=== PATIENT | male | born 1995 | race Caucasian/White ===

== ENCOUNTER 2025-02-16 00:26 | Inpatient (IN) | payer MEDICARE, MEDICAID, SELFPAY ==
[2025-02-16 00:51] VITALS: BP 158/80; PULSE 97; O2SAT 100; BMI 21.2
[2025-02-16 00:57] VITALS: BP 139/81; PULSE 87; RESP 18; TEMP 36.8; O2SAT 98
--- NOTE | 2025-02-16 01:07 | ED.PSYCH ---
HPI - Psych General Chief Complaint: Psychiatric Symptoms Stated Complaint: crisis Time Seen by Provider: 02/16/25 01:02 Source: patient Mode of arrival: ambulatory Limitations: no limitations History of Present Illness ED Provider: Burt FARR HPI Narrative: The patient is a 29-year-old male presenting to the ED for evaluation of suicidal statements made to a real estate processor after being pulled over tonight for a broken tail light. The patient reports a history of schizoaffective disorder with previous self-harm and depression, reports previous inpatient psychiatric admissions at age 14 and 16, also reports history of alcohol dependency but has been sober for the past 3 years. The patient denies any recreational drug use. The patient reports he has been experiencing passive suicidal thoughts recently as he recently lost his home and is currently living out of his vehicle. Patient reports he has also been experiencing increased stress after a recent divorce. The patient reports 2-3 days ago he did inflict superficial abrasions to his left forearm with a knife, reports a history of self-mutilation as a teenager. The patient reports tonight he was driving from [place] where he recently was living, to [place] where his girlfriend of 2 years currently resides when he was pulled over and admitted to suicidal thoughts. The patient denies homicidal ideation. The patient reports he suffers from both auditory and visual hallucinations/delusions, however states he is able to differentiate between his hallucinations and reality. Patient denies any active auditory or visual hallucinations in the ED. Related Data Home Medications ?Medication ?Instructions ?Recorded ?Confirmed venlafaxine 150 mg 150 mg PO DAILY 02/16/25 02/16/25 capsule,extended release 24 hr venlafaxine 37.5 mg 37.5 mg PO DAILY 02/16/25 02/16/25 capsule,extended release 24 hr Previous Rx's ?Medication ?Instructions ?Recorded cariprazine 1.5 mg capsule 1.5 mg PO DAILY 30 days #30 caps 02/21/25 (Vraylar) Allergies Allergy/AdvReac Type Severity Reaction Status Date / Time Iodinated Contrast Media Allergy Anaphylaxis Verified 02/16/25 00:56 risperidone Allergy Unknown Verified 02/16/25 00:56 Review of Systems Review of Systems: Yes all other systems are reviewed and are negative PMFSH Social History Social History Household Members: Family Household Members Other:: Mom, stepfather, 1 brother and grandmother Housing: House Do you presently have visiting nurse or other home services: No Patient Tobacco Use Status: Current everyday Tobacco user Tobacco use type: Cigarette Cigarette Packs Per Day: 1 Cigarettes Per Day: 20.0 e-Cigarette/Vaping Use: Never Used Second Hand Smoke Exposure: Yes (mother when she smokes) Substance Use Type: Marijuana service: No Sexual orientation: Straight/Heterosexual Physical Exam Exam: Exam: CONSTITUTIONAL: The patient appears non-toxic, well nourished and in no acute distress. Vital signs as documented. HEAD: Atraumatic, normocephalic. EYES: EOMs grossly intact, pupils equal, conjunctiva clear, no exudate. ENT: Nares patent, no discharge. Airway patent, no audible stridor, visible mucosa is pink and moist without noted lesions. NECK: Trachea is midline, no obvious masses or gross abnormalities. CHEST: Symmetric movement, normal appearance. LUNGS: LS present and CTAB, no w/r/r. Non-labored work of breathing. CARDIAC: Regular Rhythm, S1/S2 appreciated, no murmurs, rubs or gallops. ABDOMEN: Abdomen soft and non-tender x4 quadrants, no palpable masses or organomegaly. : Deferred. EXTREMITIES: Normal tone, moves all extremities spontaneously without reported pain. No obvious acute injury or deformity noted. NEURO: Alert and oriented x3, CN II-XII appear grossly intact. Cerebellar Functioning grossly intact. No obvious sensory or motor deficits. Speech clear and appropriate. PSYCH: Flattened affect, but otherwise with appropriate eye contact, fluid speech, with appropriate response to questioning. No reported homicidality. Patient does not appear to be responding to internal stimuli. SKIN: Warm, dry, color appropriate, normal turgor. No rashes noted. Vital Signs: Vital Signs: Last Vital Signs Temp 97.5 F 02/22/25 07:42 Pulse 84 02/22/25 07:42 Resp 18 02/22/25 07:42 BP 134/66 02/22/25 07:42 Pulse Ox 96 02/22/25 07:42 O2 Del Method Room Air 02/22/25 07:42 BMI result Body Mass Index 21.2 Medications Administered Discontinued Medications Generic Name Dose Route Start Last Admin Trade Name Freq PRN Reason Stop Dose Admin Cariprazine 1.5 mg 02/16/25 16:00 02/22/25 08:21 Cariprazine Hcl 1.5 Mg Capsule PO 1.5 mg DAILY ROSI Administration Melatonin 6 mg 02/20/25 21:00 02/21/25 20:10 Melatonin 3 Mg Tablet PO Not Given BEDTIME ROSI Nicotine 21 mg 02/17/25 09:00 02/22/25 08:38 Nicotine 21 Mg Patch.Td24 TRANSDERMA Not Given DAILY ROSI Ondansetron HCl 4 mg 02/16/25 17:40 02/17/25 08:27 Ondansetron Odt 4 Mg Tab.Rapdis TRANSLINGU 4 mg Q6H PRN Administration Nausea and Vomiting Venlafaxine HCl 37.5 mg 02/16/25 18:10 02/22/25 08:21 Venlafaxine Hcl Er 37.5 Mg Cap.Er.24h PO 37.5 mg DAILY ROSI Administration Venlafaxine HCl 150 mg 02/16/25 18:10 02/22/25 08:21 Venlafaxine Hcl Er 150 Mg Cap.Er.24h PO 150 mg DAILY ROSI Administration Medical Decision Making Medical Decision Making MDM Narrative: 1:23 AM 02/16/2025 (Nicolasa FARR): The patient is a 29-year-old male presenting to the ED for evaluation of suicidal statements without a formulated plan made to a real estate processor while being pulled over for a broken tail light. The patient in the ED admits to making suicidal statements and having suicidal thoughts as well as inflicting superficial abrasions to his left forearm as a form of self-mutilation 2-3 days ago. The patient is currently homeless and experiencing other stresses since recently completing a divorce. The patient in the ED is common cooperative, exam is benign. Patient will be medically cleared for crisis evaluation. 2:20 AM 02/16/2025 (Nicolasa FARR): Patient is medically cleared for crisis evaluation. Lab Data 02/16/25 01:41 02/17/25 08:35 Labs: Lab Results 02/16/25 02/16/25 02/16/25 Range/Units 01:41 05:19 07:49 WBC 10.8 (4.8-10.8) X10*3/uL RBC 4.49 L (4.60-5.80) X10*6/uL Hgb 14.4 (14.0-18.0) g/dl Hct 39.3 L (42.0-52.0) % MCV 87.5 (80.0-98.0) fL MCH 32.1 (27.0-33.0) pg MCHC 36.6 H (31.0-36.0) g/dl RDW 11.9 (11.0-16.0) % Plt Count 250 (160-400) X10*3/uL MPV 9.2 L (9.4-12.4) fL Immature Gran % (Auto) 0.3 (0.0-0.4) % Neut % (Auto) 69.2 (45-73) % Lymph % (Auto) 22.6 (20-40) % [place] % (Auto) 6.3 (2-11) % Eos % (Auto) 1.3 (0-4) % Baso % (Auto) 0.3 (0-2) % Lymph # (Auto) 2.5 (1.2-4.9) X10*3/uL [place] # (Auto) 0.7 (0.1-1.2) X10*3/uL Eos # (Auto) 0.1 (0.0-0.4) X10*3/uL Baso # (Auto) 0.0 (0.0-0.2) X10*3/uL Abs Immat Gran (auto) 0.03 (0.00-0.03) X10*3/uL Absolute Neuts (auto) 7.5 (2.0-8.3) x10*3/uL Absolute Nucleated RBC 0.000 (0.0-0.012) X10*3/uL Nucleated RBC % (auto) 0.0 (0.0-0.2) /100WBC Sodium 143 (135-145) mmol/L Potassium 3.2 L (3.3-5.1) mmol/L Chloride 106 (96-108) mmol/L Carbon Dioxide 26 (22-29) mmol/L Anion Gap 14 (12-20) BUN 11 (9-16) mg/dL Creatinine 0.98 (0.5-1.4) mg/dL Estim Creat Clear Calc 122.3 Estimated GFR > 60 Random Glucose 123 H (60-115) mg/dL Calcium 9.4 (8.4-10.2) mg/dL Total Bilirubin 0.7 (0.0-1.0) mg/dL AST 28 (5-37) U/L ALT 20 (0-40) U/L Alkaline Phosphatase 57 (39-117) U/L Total Protein 7.5 (6.5-8.0) g/dL Albumin 5.2 H (3.5-5.0) g/dL Urine Color Yellow Urine Appearance Clear Urine pH 7.5 (5.0-9.0) Ur Specific [place] <= 1.005 (1.005-1.025) Urine Protein Negative (Neg-Trace) mg/dL Urine Glucose (UA) Negative (Negative) mg/dL Urine Ketones Negative (Negative) mg/dL Urine Blood Negative (Negative) Urine Nitrite Negative (Negative) Ur Leukocyte Esterase Negative (Negative) Salicylates < 5.0 L (15-30) mg/dL Urine Opiates Screen Not Detected (Not Detect) Ur Buprenorphine Scrn Not Detected (Not Detect) ng/mL Ur Oxycodone Screen Not Detected (Not Detect) ng/mL Urine Methadone Screen Not Detected (Not Detect) ng/mL Urine Fentanyl Screen Not Detected (Not Detect) Acetaminophen < 3 (<30) mcg/mL Ur Barbiturates Screen Not Detected (Not Detect) Ur Phencyclidine Scrn Not Detected (Not Detect) Ur Amphetamines Screen Not Detected (Not Detect) U Benzodiazepines Scrn Not Detected (Not Detect) Urine Cocaine Screen Not Detected (Not Detect) U Marijuana (THC) Screen POSITIVE H (Not Detect) Ethyl Alcohol < 10 mg/dL Discharge Plan Discharge Clinical Impression: Schizoaffective disorder Patient Disposition: Admitted As Inpatient Interventions: Admission Worksheet (ED) Last Done: 02/16/25 12:58 Discharge Date/Time: 02/16/25 13:12
--- NOTE | 2025-02-16 01:12 | MHC.EDTECH ---
Pts belongings are in the shanice port on shelf 1
[2025-02-16 01:45] LABS: MANUAL DIFF FLAG NO
[2025-02-16 02:00] LABS: Hematocrit 39.3 % (42.0-52.0); Hemoglobin 14.4 g/dl (14.0-18.0); Imm Gran Abs Auto 0.03 X10*3/uL (0.00-0.03); Imm Gran Pct Auto 0.3 % (0.0-0.4); Lymphocytes Absolute Auto 2.5 X10*3/uL (1.2-4.9); Mean Corpuscular HGB Conc 36.6 g/dl (31.0-36.0); Mean Corpuscular Hemoglobin 32.1 pg (27.0-33.0); Mean Corpuscular Volume 87.5 fL (80.0-98.0); NRBC Abs Auto 0.000 X10*3/uL (0.0-0.012); NRBC Pct Auto 0.0 /100WBC (0.0-0.2); Platelet Count 250 X10*3/uL (160-400); Red Blood Count 4.49 X10*6/uL (4.60-5.80); White Blood Count 10.8 X10*3/uL (4.8-10.8)
[2025-02-16 02:04] LABS: Alanine Aminotransferase 20 U/L (0-40); Albumin Level 5.2 g/dL (3.5-5.0); Alkaline Phosphatase 57 U/L (39-117); Anion Gap 14 (12-20); Aspartate Amino Transferase 28 U/L (5-37); Blood Urea Nitrogen 11 mg/dL (9-16); Calcium 9.4 mg/dL (8.4-10.2); Carbon Dioxide 26 mmol/L (22-29); Chloride 106 mmol/L (96-108); Creatinine Clr Calc Pharmacy 122.3; Estimated Glomerular Filt Rate > 60; Potassium 3.2 mmol/L (3.3-5.1); Sodium 143 mmol/L (135-145); Total Protein 7.5 g/dL (6.5-8.0)
[2025-02-16 02:24] LABS: Acetaminophen LAB < 3 mcg/mL (<30); Salicylate < 5.0 mg/dL (15-30)
[2025-02-16 05:41] LABS: Cannabinoid Screen Urine POSITIVE (Not Detect)
[2025-02-16 06:38] VITALS: BP 114/66; PULSE 68; RESP 18; TEMP 36.5; O2SAT 99
--- NOTE | 2025-02-16 07:29 | PC.NURSE ---
patient currently sleeping, vitals stable, rr equal/non labored, 1:1 sitter at bedside, call bhat within reach, plan of care ongoing
[2025-02-16 07:57] LABS: Appearance Urine Clear; Glucose Urine UA Negative (Negative); PH 7.5 (5.0-9.0); Specific Gravity - Urine <= 1.005 (1.005-1.025)
--- NOTE | 2025-02-16 08:32 | ECG_ITS ---
Test Reason : R/O PROLONGED QT Blood Pressure : */* mmHG Vent. Rate : 67 BPM Atrial Rate : 67 BPM P-R Int : 128 ms QRS Dur : 102 ms QT Int : 404 ms P-R-T Axes : 55 73 54 degrees QTcB Int : 426 ms Normal sinus rhythm with sinus arrhythmia Normal ECG No previous ECGs available Referred By: Burt Teran Electronically Signed By: TERRENCE NARANJO
--- NOTE | 2025-02-16 09:59 | MHC.CARE ---
Pt seen by CARE team, patient on section 12 and will be inpatient level of care. ED provider notified and in agreement with disposition.
[2025-02-16 13:55] VITALS: BMI 21.9
[2025-02-16 14:00] VITALS: BP 144/85; PULSE 86; RESP 16; TEMP 36.8; O2SAT 100
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
[2025-02-16] MEDS: Venlafaxine HCl ER 37.5 MG CAP.ER.24H PO (18:20)
[2025-02-16] MEDS: Venlafaxine HCl ER 150 MG CAP.ER.24H PO (18:20)
[2025-02-16 20:00] VITALS: BP 131/70; PULSE 64; RESP 16; TEMP 36.7; O2SAT 98
[2025-02-17 07:45] VITALS: BP 139/83; PULSE 65; RESP 16; TEMP 36.6; O2SAT 99
[2025-02-17] MEDS: Venlafaxine HCl ER 150 MG CAP.ER.24H PO (08:36)
[2025-02-17] MEDS: Venlafaxine HCl ER 37.5 MG CAP.ER.24H PO (08:36)
[2025-02-17] MEDS: Nicotine 21 MG PATCH.TD24 TRANSDERMA (08:37)
[2025-02-17 09:14] LABS: Hemoglobin A1C 116.4109 umol/L; Total Hemoglobin (HGBA1C) 3900.8240 umol/L
[2025-02-17 09:32] LABS: Alanine Aminotransferase 26 U/L (0-40); Albumin Level 5.4 g/dL (3.5-5.0); Alkaline Phosphatase 59 U/L (39-117); Anion Gap 13 (12-20); Aspartate Amino Transferase 31 U/L (5-37); Blood Urea Nitrogen 14 mg/dL (9-16); Calcium 9.6 mg/dL (8.4-10.2); Carbon Dioxide 27 mmol/L (22-29); Chloride 103 mmol/L (96-108); Cholesterol 185 mg/dL (<200); Creatinine Clr Calc Pharmacy 143.5; Estimated Glomerular Filt Rate > 60; HDL Cholesterol 55 mg/dL (>40); Potassium 4.2 mmol/L (3.3-5.1); Sodium 139 mmol/L (135-145); Total Protein 8.0 g/dL (6.5-8.0); Triglycerides 112 mg/dL (<150)
--- NOTE | 2025-02-17 10:28 | P.PNPSI_ITS ---
Subjective Subjective Date of Service: 02/17/25 Reason For Visit: SI Subjective Notes: Conditional Voluntary Interim History: Active on unit. attending groups. medication compliant. Patient reports feeling decent today; he reports visit with his mother went well yesterday. Patient stated, she told me I can go back there but I don't want to deal with my step father . Patient reports he is looking forward to seeing his animals and daughter. denies SI/HI/VH. Continues to report auditory hallucinations; denies any side effects from starting Vraylar. He reports sleeping well last night. Continue current tx plan. Medication Compliance: Yes Side effects from medications: No Attending Groups: Yes Mental Status Exam Mental Status Exam Narrative: Pt is alert and oriented; behavior is cooperative and calm; dressed in casual attire; mood is described as decent ; eye contact appropriate; Speech is normal rate, low volume and not pressured; thought process is organized; Thought content is on tx; denies SI/HI/VH. +AH Diagnostics Vital Signs (24Hr): Vital Signs - 24 hr 02/16/25 14:00 02/16/25 20:00 02/17/25 07:45 Temperature 98.2 F 98.0 F 97.8 F Pulse Rate 86 64 65 Respiratory Rate 16 16 16 Blood Pressure 144/85 H 131/70 139/83 Pulse Oximetry 100 98 99 Oxygen Delivery Method Room Air Room Air Room Air BMI result Body Mass Index 21.9 Labs 02/16/25 01:41 02/17/25 08:35 Labs: Laboratory Results - last 48 hr 02/16/25 02/16/25 02/16/25 01:41 05:19 07:49 WBC 10.8 RBC 4.49 L Hgb 14.4 Hct 39.3 L MCV 87.5 MCH 32.1 MCHC 36.6 H RDW 11.9 Plt Count 250 MPV 9.2 L Immature Gran % (Auto) 0.3 Neut % (Auto) 69.2 Lymph % (Auto) 22.6 [place] % (Auto) 6.3 Eos % (Auto) 1.3 Baso % (Auto) 0.3 Lymph # (Auto) 2.5 [place] # (Auto) 0.7 Eos # (Auto) 0.1 Baso # (Auto) 0.0 Abs Immat Gran (auto) 0.03 Absolute Neuts (auto) 7.5 Absolute Nucleated RBC 0.000 Nucleated RBC % (auto) 0.0 Sodium 143 Potassium 3.2 L Chloride 106 Carbon Dioxide 26 Anion Gap 14 BUN 11 Creatinine 0.98 Estim Creat Clear Calc 122.3 Estimated GFR > 60 Random Glucose 123 H Estimat Average Glucose Hemoglobin A1c % Calcium 9.4 Total Bilirubin 0.7 AST 28 ALT 20 Alkaline Phosphatase 57 Total Protein 7.5 Albumin 5.2 H Triglycerides Cholesterol LDL Cholesterol, Calc HDL Cholesterol Urine Color Yellow Urine Appearance Clear Urine pH 7.5 Ur Specific [place] <= 1.005 Urine Protein Negative Urine Glucose (UA) Negative Urine Ketones Negative Urine Blood Negative Urine Nitrite Negative Ur Leukocyte Esterase Negative Salicylates < 5.0 L Urine Opiates Screen Not Detected Ur Buprenorphine Scrn Not Detected Ur Oxycodone Screen Not Detected Urine Methadone Screen Not Detected Urine Fentanyl Screen Not Detected Acetaminophen < 3 Ur Barbiturates Screen Not Detected Ur Phencyclidine Scrn Not Detected Ur Amphetamines Screen Not Detected U Benzodiazepines Scrn Not Detected Urine Cocaine Screen Not Detected U Marijuana (THC) Screen POSITIVE H Ethyl Alcohol < 10 02/17/25 08:35 WBC RBC Hgb Hct MCV MCH MCHC RDW Plt Count MPV Immature Gran % (Auto) Neut % (Auto) Lymph % (Auto) [place] % (Auto) Eos % (Auto) Baso % (Auto) Lymph # (Auto) [place] # (Auto) Eos # (Auto) Baso # (Auto) Abs Immat Gran (auto) Absolute Neuts (auto) Absolute Nucleated RBC Nucleated RBC % (auto) Sodium 139 Potassium 4.2 D Chloride 103 Carbon Dioxide 27 Anion Gap 13 BUN 14 Creatinine 0.86 Estim Creat Clear Calc 143.5 Estimated GFR > 60 Random Glucose 108 Estimat Average Glucose 94 Hemoglobin A1c % 4.9 Calcium 9.6 Total Bilirubin 1.6 H AST 31 ALT 26 Alkaline Phosphatase 59 Total Protein 8.0 Albumin 5.4 H Triglycerides 112 Cholesterol 185 LDL Cholesterol, Calc 108 H HDL Cholesterol 55 Urine Color Urine Appearance Urine pH Ur Specific [place] Urine Protein Urine Glucose (UA) Urine Ketones Urine Blood Urine Nitrite Ur Leukocyte Esterase Salicylates Urine Opiates Screen Ur Buprenorphine Scrn Ur Oxycodone Screen Urine Methadone Screen Urine Fentanyl Screen Acetaminophen Ur Barbiturates Screen Ur Phencyclidine Scrn Ur Amphetamines Screen U Benzodiazepines Scrn Urine Cocaine Screen U Marijuana (THC) Screen Ethyl Alcohol Medications Medications Current Medications Acetaminophen (Acetaminophen 325 Mg Tablet) 650 mg PO Q6H PRN PRN Reason: Headache/Pain, Scale 1-10 Al Hydroxide/Mg Hydroxide (Magnesium Hydrox/Alum Hydrox 30 Ml Oral.Susp) 30 ml PO Q6H PRN PRN Reason: Heartburn/Nausea Cariprazine (Cariprazine Hcl 1.5 Mg Capsule) 1.5 mg PO DAILY [facility] Last Admin: 02/17/25 08:36 Dose: 1.5 mg Hydroxyzine HCl (Hydroxyzine Hcl 25 Mg Tablet) 25 mg PO Q6H PRN PRN Reason: mild anxiety Magnesium Hydroxide (Milk Of Magnesia 30 Ml Oral.Susp) 30 ml PO DAILY PRN PRN Reason: Constipation Nicotine (Nicotine 21 Mg Patch.Td24) 21 mg TRANSDERMA DAILY [facility] Last Admin: 02/17/25 08:37 Dose: 21 mg Nicotine Polacrilex (Nicotine Polacrilex 2 Mg Gum) 4 mg BUCCAL Q2H PRN PRN Reason: Nicotine Cravings Olanzapine (Olanzapine 5 Mg Tablet) 5 mg PO Q4H PRN PRN Reason: agitation Ondansetron HCl (Ondansetron Odt 4 Mg Tab.Rapdis) 4 mg TRANSLINGU Q6H PRN PRN Reason: Nausea and Vomiting Last Admin: 02/17/25 08:27 Dose: 4 mg Trazodone HCl (Trazodone Hcl 50 Mg Tablet) 50 mg PO BEDTIME MRX1 PRN PRN Reason: Insomnia Venlafaxine HCl (Venlafaxine Hcl Er 37.5 Mg Cap.Er.24h) 37.5 mg PO DAILY [facility] Last Admin: 02/17/25 08:36 Dose: 37.5 mg Venlafaxine HCl (Venlafaxine Hcl Er 150 Mg Cap.Er.24h) 150 mg PO DAILY [facility] Last Admin: 02/17/25 08:36 Dose: 150 mg Allergies Allergies Allergy/AdvReac Type Severity Reaction Status Date / Time Iodinated Contrast Media Allergy Anaphylaxis Verified 02/16/25 00:56 risperidone Allergy Unknown Verified 02/16/25 00:56 Assessment & Plan Assessment & Plan (1) Bipolar 1 disorder: Status: Acute Code(s): F31.9 - Bipolar disorder, unspecified (2) PTSD (post-traumatic stress disorder): Status: Acute Code(s): F43.10 - Post-traumatic stress disorder, unspecified (3) Autism spectrum disorder: Status: Acute Code(s): F84.0 - Autistic disorder Plan Patient is a 29 year old male with hx of Bipolar d/o, PTSD and autism spectrum disorder who presented to ER via ambulance d/t making suicidal statement secondary to increased life stressors. Plan: CV 15 minute safety checks Continue home medications obtain collateral Start: Vraylar 1.5mg PO daily referral to outpatient psychiatric providers encourage groups discharge planning 02/17: Active on unit. attending groups. medication compliant. Patient reports feeling decent today; he reports visit with his mother went well yesterday. Patient stated, she told me I can go back there but I don't want to deal with my step father . Patient reports he is looking forward to seeing his animals and daughter. denies SI/HI/VH. Continues to report auditory hallucinations; denies any side effects from starting Vraylar. He reports sleeping well last night. Continue current tx plan. Patient educated on: diagnosis, medication risk/benefits and therapeutic strategies Reason for continued inpatient stay Substantial Risk for: med/psych decompensation Time Spent With Patient Time: Total time managing care of this patient today _20___ minutes.
[2025-02-17 20:00] VITALS: BP 126/85; PULSE 70; RESP 16; TEMP 36.3; O2SAT 98
[2025-02-18 07:35] VITALS: BP 134/77; PULSE 90; RESP 18; TEMP 36.3; O2SAT 99
[2025-02-18] MEDS: Nicotine 21 MG PATCH.TD24 TRANSDERMA (09:11)
[2025-02-18] MEDS: Venlafaxine HCl ER 37.5 MG CAP.ER.24H PO (09:12)
[2025-02-18] MEDS: Venlafaxine HCl ER 150 MG CAP.ER.24H PO (09:12)
--- NOTE | 2025-02-18 10:37 | HO.PSYCHPN ---
Subjective Subjective Date of Service: 02/18/25 Reason For Visit: SI Subjective Notes: Conditional Voluntary Interim History: Patient was seen and discussed in rounds today. Records and plans were reviewed. He is stable and is doing better. Eating and sleeping adequately. Slept 8 hours. Denies any symptoms. Some depression still present. No SI. No changes were made today Review of Systems Review of Systems Yes all other systems are reviewed and are negative Mental Status Exam Mental Status Exam Narrative: In today's visit he is alert, pleasant and interactive. Normal speech. Good eye contact. Affect is appropriate and varied. No signs of psychosis. No delusions. No SI. Cognitively intact. Judgment is intact Diagnostics Vital Signs (24Hr): Vital Signs - 24 hr 02/17/25 20:00 02/18/25 07:35 Temperature 97.4 F 97.4 F Pulse Rate 70 90 Respiratory Rate 16 18 Blood Pressure 126/85 134/77 Pulse Oximetry 98 99 Oxygen Delivery Method Room Air Room Air BMI result Body Mass Index 21.9 Labs 02/16/25 01:41 02/17/25 08:35 Labs: Laboratory Results - last 48 hr 02/17/25 08:35 Sodium 139 Potassium 4.2 D Chloride 103 Carbon Dioxide 27 Anion Gap 13 BUN 14 Creatinine 0.86 Estim Creat Clear Calc 143.5 Estimated GFR > 60 Random Glucose 108 Estimat Average Glucose 94 Hemoglobin A1c % 4.9 Calcium 9.6 Total Bilirubin 1.6 H AST 31 ALT 26 Alkaline Phosphatase 59 Total Protein 8.0 Albumin 5.4 H Triglycerides 112 Cholesterol 185 LDL Cholesterol, Calc 108 H HDL Cholesterol 55 Medications Medications Current Medications Acetaminophen (Acetaminophen 325 Mg Tablet) 650 mg PO Q6H PRN PRN Reason: Headache/Pain, Scale 1-10 Al Hydroxide/Mg Hydroxide (Magnesium Hydrox/Alum Hydrox 30 Ml Oral.Susp) 30 ml PO Q6H PRN PRN Reason: Heartburn/Nausea Cariprazine (Cariprazine Hcl 1.5 Mg Capsule) 1.5 mg PO DAILY [facility] Last Admin: 02/18/25 09:12 Dose: 1.5 mg Hydroxyzine HCl (Hydroxyzine Hcl 25 Mg Tablet) 25 mg PO Q6H PRN PRN Reason: mild anxiety Magnesium Hydroxide (Milk Of Magnesia 30 Ml Oral.Susp) 30 ml PO DAILY PRN PRN Reason: Constipation Nicotine (Nicotine 21 Mg Patch.Td24) 21 mg TRANSDERMA DAILY [facility] Last Admin: 02/18/25 09:11 Dose: 21 mg Nicotine Polacrilex (Nicotine Polacrilex 2 Mg Gum) 4 mg BUCCAL Q2H PRN PRN Reason: Nicotine Cravings Olanzapine (Olanzapine 5 Mg Tablet) 5 mg PO Q4H PRN PRN Reason: agitation Ondansetron HCl (Ondansetron Odt 4 Mg Tab.Rapdis) 4 mg TRANSLINGU Q6H PRN PRN Reason: Nausea and Vomiting Last Admin: 02/17/25 08:27 Dose: 4 mg Trazodone HCl (Trazodone Hcl 50 Mg Tablet) 50 mg PO BEDTIME MRX1 PRN PRN Reason: Insomnia Venlafaxine HCl (Venlafaxine Hcl Er 37.5 Mg Cap.Er.24h) 37.5 mg PO DAILY [facility] Last Admin: 02/18/25 09:12 Dose: 37.5 mg Venlafaxine HCl (Venlafaxine Hcl Er 150 Mg Cap.Er.24h) 150 mg PO DAILY [facility] Last Admin: 02/18/25 09:12 Dose: 150 mg Allergies Allergies Allergy/AdvReac Type Severity Reaction Status Date / Time Iodinated Contrast Media Allergy Anaphylaxis Verified 02/16/25 00:56 risperidone Allergy Unknown Verified 02/16/25 00:56 Assessment & Plan Assessment & Plan (1) Bipolar 1 disorder: Status: Acute Code(s): F31.9 - Bipolar disorder, unspecified (2) PTSD (post-traumatic stress disorder): Status: Acute Code(s): F43.10 - Post-traumatic stress disorder, unspecified (3) Autism spectrum disorder: Status: Acute Code(s): F84.0 - Autistic disorder Plan Patient is a 29 year old male with hx of Bipolar d/o, PTSD and autism spectrum disorder who presented to ER via ambulance d/t making suicidal statement secondary to increased life stressors. Plan: CV 15 minute safety checks Continue home medications obtain collateral Start: Vraylar 1.5mg PO daily referral to outpatient psychiatric providers encourage groups discharge planning 02/18: Continue current regimen and plans Reason for continued inpatient stay Substantial Risk for: med/psych decompensation Time Spent With Patient Time: Total time managing care of this patient today ____ minutes.
[2025-02-18 20:00] VITALS: BP 139/88; PULSE 79; RESP 16; TEMP 36.8; O2SAT 99
[2025-02-19 07:30] VITALS: BP 137/81; PULSE 91; RESP 17; TEMP 36.9; O2SAT 98
[2025-02-19] MEDS: Nicotine 21 MG PATCH.TD24 TRANSDERMA (08:19)
[2025-02-19] MEDS: Venlafaxine HCl ER 150 MG CAP.ER.24H PO (08:20)
[2025-02-19] MEDS: Venlafaxine HCl ER 37.5 MG CAP.ER.24H PO (08:20)
--- NOTE | 2025-02-19 08:33 | HO.PSYCHPN ---
Subjective Subjective Date of Service: 02/18/25 Reason For Visit: SI Subjective Notes: Conditional Voluntary Interim History: Patient was seen and discussed in rounds today. Records and plans were reviewed. He is mostly isolative but visible. Interacts when approached. Still has some auditory hallucinations. Not command in nature. Eating and sleeping adequately. No complaints or side effects. No changes were made today Review of Systems Review of Systems Yes all other systems are reviewed and are negative Mental Status Exam Mental Status Exam Narrative: In today's visit he is alert, pleasant and interactive. Normal speech. Good eye contact. Affect is appropriate and varied. No acute signs of psychosis. No delusions. No SI. Cognitively intact. Judgment is intact Diagnostics Vital Signs (24Hr): Vital Signs - 24 hr 02/18/25 20:00 02/19/25 07:30 Temperature 98.2 F 98.4 F Pulse Rate 79 91 Respiratory Rate 16 17 Blood Pressure 139/88 137/81 Pulse Oximetry 99 98 Oxygen Delivery Method Room Air Nasal Cannula BMI result Body Mass Index 21.9 Labs 02/16/25 01:41 02/17/25 08:35 Labs: Laboratory Results - last 48 hr 02/17/25 08:35 Sodium 139 Potassium 4.2 D Chloride 103 Carbon Dioxide 27 Anion Gap 13 BUN 14 Creatinine 0.86 Estim Creat Clear Calc 143.5 Estimated GFR > 60 Random Glucose 108 Estimat Average Glucose 94 Hemoglobin A1c % 4.9 Calcium 9.6 Total Bilirubin 1.6 H AST 31 ALT 26 Alkaline Phosphatase 59 Total Protein 8.0 Albumin 5.4 H Triglycerides 112 Cholesterol 185 LDL Cholesterol, Calc 108 H HDL Cholesterol 55 Medications Medications Current Medications Acetaminophen (Acetaminophen 325 Mg Tablet) 650 mg PO Q6H PRN PRN Reason: Headache/Pain, Scale 1-10 Al Hydroxide/Mg Hydroxide (Magnesium Hydrox/Alum Hydrox 30 Ml Oral.Susp) 30 ml PO Q6H PRN PRN Reason: Heartburn/Nausea Cariprazine (Cariprazine Hcl 1.5 Mg Capsule) 1.5 mg PO DAILY [facility] Last Admin: 02/19/25 08:20 Dose: 1.5 mg Hydroxyzine HCl (Hydroxyzine Hcl 25 Mg Tablet) 25 mg PO Q6H PRN PRN Reason: mild anxiety Magnesium Hydroxide (Milk Of Magnesia 30 Ml Oral.Susp) 30 ml PO DAILY PRN PRN Reason: Constipation Nicotine (Nicotine 21 Mg Patch.Td24) 21 mg TRANSDERMA DAILY [facility] Last Admin: 02/19/25 08:19 Dose: 21 mg Nicotine Polacrilex (Nicotine Polacrilex 2 Mg Gum) 4 mg BUCCAL Q2H PRN PRN Reason: Nicotine Cravings Olanzapine (Olanzapine 5 Mg Tablet) 5 mg PO Q4H PRN PRN Reason: agitation Ondansetron HCl (Ondansetron Odt 4 Mg Tab.Rapdis) 4 mg TRANSLINGU Q6H PRN PRN Reason: Nausea and Vomiting Last Admin: 02/17/25 08:27 Dose: 4 mg Trazodone HCl (Trazodone Hcl 50 Mg Tablet) 50 mg PO BEDTIME MRX1 PRN PRN Reason: Insomnia Venlafaxine HCl (Venlafaxine Hcl Er 37.5 Mg Cap.Er.24h) 37.5 mg PO DAILY [facility] Last Admin: 02/19/25 08:20 Dose: 37.5 mg Venlafaxine HCl (Venlafaxine Hcl Er 150 Mg Cap.Er.24h) 150 mg PO DAILY [facility] Last Admin: 02/19/25 08:20 Dose: 150 mg Allergies Allergies Allergy/AdvReac Type Severity Reaction Status Date / Time Iodinated Contrast Media Allergy Anaphylaxis Verified 02/16/25 00:56 risperidone Allergy Unknown Verified 02/16/25 00:56 Assessment & Plan Assessment & Plan (1) Bipolar 1 disorder: Status: Acute Code(s): F31.9 - Bipolar disorder, unspecified (2) PTSD (post-traumatic stress disorder): Status: Acute Code(s): F43.10 - Post-traumatic stress disorder, unspecified (3) Autism spectrum disorder: Status: Acute Code(s): F84.0 - Autistic disorder Plan Patient is a 29 year old male with hx of Bipolar d/o, PTSD and autism spectrum disorder who presented to ER via ambulance d/t making suicidal statement secondary to increased life stressors. Plan: CV 15 minute safety checks Continue home medications obtain collateral Start: Vraylar 1.5mg PO daily referral to outpatient psychiatric providers encourage groups discharge planning 02/18: Continue current regimen and plans 02/19: Continue current plans and regimen Reason for continued inpatient stay Substantial Risk for: med/psych decompensation Time Spent With Patient Time: Total time managing care of this patient today ____ minutes.
[2025-02-19 20:00] VITALS: BP 139/78; PULSE 79; RESP 16; TEMP 37.1; O2SAT 96
[2025-02-20 07:25] VITALS: BP 136/88; PULSE 77; RESP 16; TEMP 36.4; O2SAT 99
[2025-02-20] MEDS: Nicotine 21 MG PATCH.TD24 TRANSDERMA (08:19)
[2025-02-20] MEDS: Venlafaxine HCl ER 37.5 MG CAP.ER.24H PO (08:21)
[2025-02-20] MEDS: Venlafaxine HCl ER 150 MG CAP.ER.24H PO (08:21)
--- NOTE | 2025-02-20 09:07 | HO.PSYCHPN ---
Subjective Subjective Date of Service: 02/20/25 Reason For Visit: SI Subjective Notes: Conditional Voluntary Interim History: Active on unit. social with peers. attending groups. Patient reports feeling anxious d/t thinking about returning home. Pt stated, I plan on going to [place] and staying with my parents. Then I'm going to move to [place] with my girlfriend . Patient reports sleeping well. He feels better knowing his mother picked up his vehicle from the [facility] and brought it back to [place]. Denies SI/HI/VH/AH. Continue current tx plan. Plan to discharge home on Thursday if continues to improve. Medication Compliance: Yes Side effects from medications: No Attending Groups: Yes Mental Status Exam Mental Status Exam Narrative: Pt is alert and oriented; behavior is cooperative and calm; dressed in casual attire; mood is described as anxious ; eye contact appropriate; Speech is normal rate, volume and not pressured; thought process is organized; Thought content is on discharge; denies SI/HI/VH/AH. Diagnostics Vital Signs (24Hr): Vital Signs - 24 hr 02/19/25 20:00 02/20/25 07:25 Temperature 98.7 F 97.5 F Pulse Rate 79 77 Respiratory Rate 16 16 Blood Pressure 139/78 136/88 Pulse Oximetry 96 99 Oxygen Delivery Method Room Air Room Air BMI result Body Mass Index 21.9 Labs 02/16/25 01:41 02/17/25 08:35 Medications Medications Current Medications Acetaminophen (Acetaminophen 325 Mg Tablet) 650 mg PO Q6H PRN PRN Reason: Headache/Pain, Scale 1-10 Al Hydroxide/Mg Hydroxide (Magnesium Hydrox/Alum Hydrox 30 Ml Oral.Susp) 30 ml PO Q6H PRN PRN Reason: Heartburn/Nausea Cariprazine (Cariprazine Hcl 1.5 Mg Capsule) 1.5 mg PO DAILY [facility] Last Admin: 02/20/25 08:21 Dose: 1.5 mg Hydroxyzine HCl (Hydroxyzine Hcl 25 Mg Tablet) 25 mg PO Q6H PRN PRN Reason: mild anxiety Magnesium Hydroxide (Milk Of Magnesia 30 Ml Oral.Susp) 30 ml PO DAILY PRN PRN Reason: Constipation Nicotine (Nicotine 21 Mg Patch.Td24) 21 mg TRANSDERMA DAILY [facility] Last Admin: 02/20/25 08:19 Dose: 21 mg Nicotine Polacrilex (Nicotine Polacrilex 2 Mg Gum) 4 mg BUCCAL Q2H PRN PRN Reason: Nicotine Cravings Olanzapine (Olanzapine 5 Mg Tablet) 5 mg PO Q4H PRN PRN Reason: agitation Ondansetron HCl (Ondansetron Odt 4 Mg Tab.Rapdis) 4 mg TRANSLINGU Q6H PRN PRN Reason: Nausea and Vomiting Last Admin: 02/17/25 08:27 Dose: 4 mg Trazodone HCl (Trazodone Hcl 50 Mg Tablet) 50 mg PO BEDTIME MRX1 PRN PRN Reason: Insomnia Venlafaxine HCl (Venlafaxine Hcl Er 37.5 Mg Cap.Er.24h) 37.5 mg PO DAILY [facility] Last Admin: 02/20/25 08:21 Dose: 37.5 mg Venlafaxine HCl (Venlafaxine Hcl Er 150 Mg Cap.Er.24h) 150 mg PO DAILY [facility] Last Admin: 02/20/25 08:21 Dose: 150 mg Allergies Allergies Allergy/AdvReac Type Severity Reaction Status Date / Time Iodinated Contrast Media Allergy Anaphylaxis Verified 02/16/25 00:56 risperidone Allergy Unknown Verified 02/16/25 00:56 Assessment & Plan Assessment & Plan (1) Bipolar 1 disorder: Status: Acute Code(s): F31.9 - Bipolar disorder, unspecified (2) PTSD (post-traumatic stress disorder): Status: Acute Code(s): F43.10 - Post-traumatic stress disorder, unspecified (3) Autism spectrum disorder: Status: Acute Code(s): F84.0 - Autistic disorder Plan Patient is a 29 year old male with hx of Bipolar d/o, PTSD and autism spectrum disorder who presented to ER via ambulance d/t making suicidal statement secondary to increased life stressors. Plan: CV 15 minute safety checks Continue home medications obtain collateral Start: Vraylar 1.5mg PO daily referral to outpatient psychiatric providers encourage groups discharge planning 02/18: Continue current regimen and plans 02/19: Continue current plans and regimen 02/20: Active on unit. social with peers. attending groups. Patient reports feeling anxious d/t thinking about returning home. Pt stated, I plan on going to [place] and staying with my parents. Then I'm going to move to [place] with my girlfriend . Patient reports sleeping well. He feels better knowing his mother picked up his vehicle from the [facility] and brought it back to [place]. Denies SI/HI/VH/AH. Continue current tx plan. Plan to discharge home on Thursday if continues to improve. Patient educated on: diagnosis and medication risk/benefits Reason for continued inpatient stay Substantial Risk for: med/psych decompensation Time Spent With Patient Time: Total time managing care of this patient today _20___ minutes.
[2025-02-20 19:58] VITALS: BP 131/87; PULSE 74; RESP 16; TEMP 36.6; O2SAT 98
[2025-02-21 07:46] VITALS: BP 148/85; PULSE 70; RESP 18; TEMP 36.4; O2SAT 99
[2025-02-21] MEDS: Nicotine 21 MG PATCH.TD24 TRANSDERMA (08:17)
[2025-02-21] MEDS: Venlafaxine HCl ER 150 MG CAP.ER.24H PO (08:18)
[2025-02-21] MEDS: Venlafaxine HCl ER 37.5 MG CAP.ER.24H PO (08:18)
--- NOTE | 2025-02-21 09:31 | HO.PSYCHPN ---
Subjective Subjective Date of Service: 02/21/25 Reason For Visit: SI Subjective Notes: Conditional Voluntary Interim History: Active on unit. social with peers. attending groups. Patient reports feeling good and ready to return home. Denies SI/HI/VH/AH. Patient reports he plans on following up with outpatient providers. Medication Compliance: Yes Side effects from medications: No Attending Groups: Yes Mental Status Exam Mental Status Exam Narrative: Pt is alert and oriented; behavior is cooperative and calm; dressed in casual attire; mood is described as good ; eye contact appropriate; Speech is normal rate, volume and not pressured; thought process is organized; Thought content is on discharge; denies SI/HI/VH/AH. Diagnostics Vital Signs (24Hr): Vital Signs - 24 hr 02/20/25 19:58 02/21/25 07:46 Temperature 97.8 F 97.6 F Pulse Rate 74 70 Respiratory Rate 16 18 Blood Pressure 131/87 148/85 H Pulse Oximetry 98 99 Oxygen Delivery Method Room Air Room Air BMI result Body Mass Index 21.9 Labs 02/16/25 01:41 02/17/25 08:35 Medications Medications Current Medications Acetaminophen (Acetaminophen 325 Mg Tablet) 650 mg PO Q6H PRN PRN Reason: Headache/Pain, Scale 1-10 Al Hydroxide/Mg Hydroxide (Magnesium Hydrox/Alum Hydrox 30 Ml Oral.Susp) 30 ml PO Q6H PRN PRN Reason: Heartburn/Nausea Cariprazine (Cariprazine Hcl 1.5 Mg Capsule) 1.5 mg PO DAILY [facility] Last Admin: 02/21/25 08:18 Dose: 1.5 mg Hydroxyzine HCl (Hydroxyzine Hcl 25 Mg Tablet) 25 mg PO Q6H PRN PRN Reason: mild anxiety Magnesium Hydroxide (Milk Of Magnesia 30 Ml Oral.Susp) 30 ml PO DAILY PRN PRN Reason: Constipation Melatonin (Melatonin 3 Mg Tablet) 6 mg PO BEDTIME [facility] Last Admin: 02/20/25 20:48 Dose: 6 mg Nicotine (Nicotine 21 Mg Patch.Td24) 21 mg TRANSDERMA DAILY [facility] Last Admin: 02/21/25 08:17 Dose: 21 mg Nicotine Polacrilex (Nicotine Polacrilex 2 Mg Gum) 4 mg BUCCAL Q2H PRN PRN Reason: Nicotine Cravings Olanzapine (Olanzapine 5 Mg Tablet) 5 mg PO Q4H PRN PRN Reason: agitation Ondansetron HCl (Ondansetron Odt 4 Mg Tab.Rapdis) 4 mg TRANSLINGU Q6H PRN PRN Reason: Nausea and Vomiting Last Admin: 02/17/25 08:27 Dose: 4 mg Trazodone HCl (Trazodone Hcl 50 Mg Tablet) 50 mg PO BEDTIME MRX1 PRN PRN Reason: Insomnia Venlafaxine HCl (Venlafaxine Hcl Er 37.5 Mg Cap.Er.24h) 37.5 mg PO DAILY [facility] Last Admin: 02/21/25 08:18 Dose: 37.5 mg Venlafaxine HCl (Venlafaxine Hcl Er 150 Mg Cap.Er.24h) 150 mg PO DAILY [facility] Last Admin: 02/21/25 08:18 Dose: 150 mg Allergies Allergies Allergy/AdvReac Type Severity Reaction Status Date / Time Iodinated Contrast Media Allergy Anaphylaxis Verified 02/16/25 00:56 risperidone Allergy Unknown Verified 02/16/25 00:56 Assessment & Plan Assessment & Plan (1) Bipolar 1 disorder: Status: Acute Code(s): F31.9 - Bipolar disorder, unspecified (2) PTSD (post-traumatic stress disorder): Status: Acute Code(s): F43.10 - Post-traumatic stress disorder, unspecified (3) Autism spectrum disorder: Status: Acute Code(s): F84.0 - Autistic disorder Plan Patient is a 29 year old male with hx of Bipolar d/o, PTSD and autism spectrum disorder who presented to ER via ambulance d/t making suicidal statement secondary to increased life stressors. Plan: CV 15 minute safety checks Continue home medications obtain collateral Start: Vraylar 1.5mg PO daily referral to outpatient psychiatric providers encourage groups discharge planning 02/18: Continue current regimen and plans 02/19: Continue current plans and regimen 02/20: Active on unit. social with peers. attending groups. Patient reports feeling anxious d/t thinking about returning home. Pt stated, I plan on going to [place] and staying with my parents. Then I'm going to move to [place] with my girlfriend . Patient reports sleeping well. He feels better knowing his mother picked up his vehicle from the impound and brought it back to [place]. Denies SI/HI/VH/AH. Continue current tx plan. Plan to discharge home on Thursday if continues to improve. 02/21: Active on unit. social with peers. attending groups. Patient reports feeling good and ready to return home. Denies SI/HI/VH/AH. Patient reports he plans on following up with outpatient providers. Patient educated on: diagnosis and medication risk/benefits Reason for continued inpatient stay Substantial Risk for: stable for discharge Time Spent With Patient Time: Total time managing care of this patient today _20___ minutes.
[2025-02-21 20:00] VITALS: BP 138/88; PULSE 76; RESP 16; TEMP 37.2; O2SAT 98
[2025-02-22 07:42] VITALS: BP 134/66; PULSE 84; RESP 18; TEMP 36.4; O2SAT 96
[2025-02-22] MEDS: Venlafaxine HCl ER 37.5 MG CAP.ER.24H PO (08:21)
[2025-02-22] MEDS: Venlafaxine HCl ER 150 MG CAP.ER.24H PO (08:21)
--- NOTE | 2025-02-22 09:38 | P.DS_ITS ---
DS: Providers Provider Date of Service: 02/22/25 Date of admission: 02/16/25 10:46 Date of discharge: 02/22/25 Primary care physician: Unknown Physician Admitting clinician: Oly Miller Attending physician on admission: Michael Cheatham Attending physician on discharge: Michael Cheatham Discharging clinician: Oly Miller DS: Diagnosis Discharge Diagnosis (1) Bipolar 1 disorder: Status: Acute (2) PTSD (post-traumatic stress disorder): Status: Acute (3) Autism spectrum disorder: Status: Acute DS: Medications Discharge Medications Home Medications: Home Medications ?Medication ?Instructions ?Recorded ?Confirmed venlafaxine 150 mg 150 mg PO DAILY 02/16/2502/03 capsule,extended release 24 hr venlafaxine 37.5 mg 37.5 mg PO DAILY 02/16/25 capsule,extended release 24 hr Previous Rx's ?Medication ?Instructions ?Recorded cariprazine 1.5 mg capsule 1.5 mg PO DAILY 30 days #30 caps 02/21/25 (Kait) Mental Status Exam Mental Status Exam Narrative: Pt is alert and oriented; behavior is cooperative and calm; dressed in casual attire; mood is described as good ; eye contact appropriate; Speech is normal rate, volume and not pressured; thought process is organized; Thought content is on discharge; denies SI/HI/VH/AH. Data Data Completed and Pending Completed studies during hospitalization [Text1]: 02/16/25 02/16/25 02/16/25 01:41 05:19 07:49 WBC 10.8 RBC 4.49 L Hgb 14.4 Hct 39.3 L MCV 87.5 MCH 32.1 MCHC 36.6 H RDW 11.9 Plt Count 250 MPV 9.2 L Immature Gran % (Auto) 0.3 Neut % (Auto) 69.2 Lymph % (Auto) 22.6 [place] % (Auto) 6.3 Eos % (Auto) 1.3 Baso % (Auto) 0.3 Lymph # (Auto) 2.5 [place] # (Auto) 0.7 Eos # (Auto) 0.1 Baso # (Auto) 0.0 Abs Immat Gran (auto) 0.03 Absolute Neuts (auto) 7.5 Absolute Nucleated RBC 0.000 Nucleated RBC % (auto) 0.0 Sodium 143 Potassium 3.2 L Chloride 106 Carbon Dioxide 26 Anion Gap 14 BUN 11 Creatinine 0.98 Estim Creat Clear Calc 122.3 Estimated GFR > 60 Random Glucose 123 H Estimat Average Glucose Hemoglobin A1c % Calcium 9.4 Total Bilirubin 0.7 AST 28 ALT 20 Alkaline Phosphatase 57 Total Protein 7.5 Albumin 5.2 H Triglycerides Cholesterol LDL Cholesterol, Calc HDL Cholesterol Urine Color Yellow Urine Appearance Clear Urine pH 7.5 Ur Specific [place] <= 1.005 Urine Protein Negative Urine Glucose (UA) Negative Urine Ketones Negative Urine Blood Negative Urine Nitrite Negative Ur Leukocyte Esterase Negative Salicylates < 5.0 L Urine Opiates Screen Not Detected Ur Buprenorphine Scrn Not Detected Ur Oxycodone Screen Not Detected Urine Methadone Screen Not Detected Urine Fentanyl Screen Not Detected Acetaminophen < 3 Ur Barbiturates Screen Not Detected Ur Phencyclidine Scrn Not Detected Ur Amphetamines Screen Not Detected U Benzodiazepines Scrn Not Detected Urine Cocaine Screen Not Detected U Marijuana (THC) Screen POSITIVE H Ethyl Alcohol < 10 02/17/25 08:35 WBC RBC Hgb Hct MCV MCH MCHC RDW Plt Count MPV Immature Gran % (Auto) Neut % (Auto) Lymph % (Auto) [place] % (Auto) Eos % (Auto) Baso % (Auto) Lymph # (Auto) [place] # (Auto) Eos # (Auto) Baso # (Auto) Abs Immat Gran (auto) Absolute Neuts (auto) Absolute Nucleated RBC Nucleated RBC % (auto) Sodium 139 Potassium 4.2 D Chloride 103 Carbon Dioxide 27 Anion Gap 13 BUN 14 Creatinine 0.86 Estim Creat Clear Calc 143.5 Estimated GFR > 60 Random Glucose 108 Estimat Average Glucose 94 Hemoglobin A1c % 4.9 Calcium 9.6 Total Bilirubin 1.6 H AST 31 ALT 26 Alkaline Phosphatase 59 Total Protein 8.0 Albumin 5.4 H Triglycerides 112 Cholesterol 185 LDL Cholesterol, Calc 108 H HDL Cholesterol 55 Urine Color Urine Appearance Urine pH Ur Specific [place] Urine Protein Urine Glucose (UA) Urine Ketones Urine Blood Urine Nitrite Ur Leukocyte Esterase Salicylates Urine Opiates Screen Ur Buprenorphine Scrn Ur Oxycodone Screen Urine Methadone Screen Urine Fentanyl Screen Acetaminophen Ur Barbiturates Screen Ur Phencyclidine Scrn Ur Amphetamines Screen U Benzodiazepines Scrn Urine Cocaine Screen U Marijuana (THC) Screen Ethyl Alcohol DS: Summary Hospital Course Hospital Course: Patient is a 29 year old male with hx of Bipolar d/o, PTSD and autism spectrum disorder who presented to ER via ambulance d/t making suicidal statement secondary to increased life stressors. Per crisis report, patient presented to ER via ambulance after he was pulled over by the state police and had 7 firearms removed from his vehicle. Patient made suicidal statement to the real estate rental agent reporting he is homeless, going through a divorce and has multiple life stressors. Patient reports he got into a verbal altercation with the stepfather and was thrown out of the house yesterday. He reports he left the home and was going to drive to his girlfriend in [place]. He reports poor sleep and appetite. Patient reports chronic suicidal ideation however, denies plan or intent, stating if I were to do it, it would just happen . Denies HI/VH/AH. Utox positive for marijuana. Collateral was obtained from patient's mother, Valarie, who reports that the patient and stepfather got into a verbal altercation. Patient left the home taking his clothing and 7 firearms that he does have the legal right to carry from his gun safe. She assumed patient was going to stay at a friend's home. Patient has been stable for the past 6 years however, over the last 2 weeks he has been struggling. She reports history of suicide attempts when he was a teenager. She believes patient has not been medication compliant. During admission assessment, patient presents alert and oriented x3. Calm and cooperative. Tearful. Patient reports feeling depressed ; patient stated, I got into an argument with my stepdad and he kicked me out. He threw my guns on the lawn, so I put them in my car because I didn't want anyone to take them. My girlfriend told me that I can stay with her so, I was on my way there. I told the [employer] police [employer] that I felt broken and I didn't know what to do. I don't remember telling him I was suicidal. I wasn't planning on using the guns to harm myself; I was just bringing them to my girlfriend's home . Patient reports the [employer] police reserves removed all of his guns and he has an upcoming court hearing for carrying firearms over state lines. Patient denies SI/HI/VH. Patient stated, I don't want to because I worry about my daughter. I want to be around for her . Patient reports auditory hallucinations saying degrading things ; he reports hearing auditory hallucinations, for as long as I can remember . Patient reports he receives his psychiatric medications from his PCP. He currently does not have outpatient psychiatric providers. History of 2 prior inpatient psychiatric hospitalizations when he was 14 and 16 y/o. He reports superficially cutting. Discussed starting on Vraylar; risks/benefits reviewed; pt agreed to trial. Plan: CV 15 minute safety checks Continue home medications obtain collateral Start: Vraylar 1.5mg PO daily referral to outpatient psychiatric providers encourage groups discharge planning Active on unit. social with peers. attending groups. Patient reports feeling anxious d/t thinking about returning home. Pt stated, I plan on going to [place] and staying with my parents. Then I'm going to move to [place] with my girlfriend . Patient reports sleeping well. He feels better knowing his mother picked up his vehicle from the [facility] and brought it back to [place]. Denies SI/HI/VH/AH. Continue current tx plan. Plan to discharge home on Thursday if continues to improve. Active on unit. social with peers. attending groups. Patient reports feeling good and ready to return home. Denies SI/HI/VH/AH. Patient reports he plans on following up with outpatient providers. Status at Discharge Cognitive/behavioral status at discharge: Patient has insight and demonstrates good judgment in terms of wanting to pursue treatment. Patient has a safety plan that includes presenting to the closest ER or calling 911 if feeling unsafe. Functional status at discharge: independent ambulation Overall status at discharge: patient is back to baseline Time Spent with Patient Time attestation: Total time managing care of this patient today _20___ minutes. Time spent: Less than 30 minutes Discharge Plan Discharge Anticipated Discharge Date/Time: 02/22/25 11:00 Patient Disposition: Home, Self-Care Discharge Diagnosis: Bipolar d/o, PTSD, Autism spectrum d/o Referrals: [facility] [Other] - 03/01/25 12:40 pm Referral Note: 02-20-25 Your follow up appt has been scheduled for 03-01-25 @ 12:40pm Discharge Medications: New Vraylar 1.5 mg Capsule 1.5 mg PO DAILY 30 Days Qty: 30 0RF Continued venlafaxine 150 mg capsule,extended release 24hr 150 mg PO DAILY Rx Instructions: Per Patient takes 300mg Daily venlafaxine 37.5 mg capsule,extended release 24hr 37.5 mg PO DAILY Rx Instructions: Per patient states he takes 300mg daily Discharge Orders: Discharge Order (Routine); Ordered 02/22/25 Ordered By: Oly Miller Diet: Regular diet Activity on Discharge: As tolerated Stand Alone Forms: Patient Portal Discharge page, Community Support Print Language: Moh[place] Care Plan Goals: Maintain mood and safe behaviors Take medications as prescribed Practice coping skills Continue with outpatient providers and reach out to them as needed Health Concerns: Mood stability and behaviors Plan of Treatment: Follow up with your PCP, psychiatric provider and other outpatient providers regarding above concerns Take medications as prescribed Assessment: Patient has insight and demonstrates good judgment in terms of wanting to pursue treatment. Patient has a safety plan that includes presenting to the closest ER or calling 911 if feeling unsafe. Discharge Date/Time: 02/22/25 08:58
== END 2025-02-22 08:58 | disposition home or self-care (01) | DRG 885 ==
LOC: HO.ED 11:36 → HO.PADLT16 12:09
PROVIDERS: Physician Assistant; Admitting Provider Registered Nurse; Emergency Provider Emergency Medicine; Responsible Provider Registered Nurse; Visit Provider Psychiatry & Neurology Psychiatry
DX: F31.9 Bipolar disorder, unspecified (principal); F17.210 Nicotine dependence, cigarettes, uncomplicated; Z71.6 Tobacco abuse counseling; F43.10 Post-traumatic stress disorder, unspecified; F84.0 Autistic disorder; Z79.899 Other long term (current) drug therapy
CPT/HCPCS: 36415; 80053; 80061; 80143; 80179; 80307; 81003; 83036; 85025; 93005; 99285; S9485

== ENCOUNTER → 2025-02-16 08:32 | Outpatient (BNV) | payer MEDICARE, MEDICAID, SELFPAY | PROVIDERS: Admitting Provider Registered Nurse; Emergency Provider Emergency Medicine; Responsible Provider Registered Nurse; Visit Provider Internal Medicine | DX: Z13.6 Encounter for screening for cardiovascular disorders (principal) | CPT/HCPCS: 93010 ==

== ENCOUNTER → 2025-02-16 10:46 | Outpatient (BNV) | payer MEDICARE, MEDICAID, SELFPAY | PROVIDERS: Admitting Provider Registered Nurse; Emergency Provider Emergency Medicine; Responsible Provider Registered Nurse; Visit Provider Registered Nurse | DX: F31.4 Bipolar disorder, current episode depressed, severe, without psychotic features (principal); F43.11 Post-traumatic stress disorder, acute; F84.0 Autistic disorder | CPT/HCPCS: 90792; 99231; 99232 ==